=== PATIENT | female | born 1965 | race Caucasian/White ===

== ENCOUNTER 2022-07-10 13:40 | Emergency (ER) | payer OTHER, SELFPAY ==
[2022-07-10 13:51] VITALS: BP 101/70; PULSE 76; RESP 18; TEMP 36.8; O2SAT 96; BMI 38.7
--- NOTE | 2022-07-10 14:01 | ED.SKABFB1 ---
HPI - Skin/Abscess/Foreign Bdy General Chief complaint: Skin/Abscess/Foreign Body Stated complaint: SPLINTER IN BOTTOM OF FOOT Time Seen by Provider: 07/10/22 13:55 Source: patient Mode of arrival: walk-in Limitations: no limitations History of Present Illness HPI narrative: 57 year old female presents to the ED with c/o FB in her right foot. States she has a splinter in her right lateral foot. It occurred 3 days ago. Her tetanus status is not up to date. Reports increased pain today. Denies hx of DM. Denies fever, chills, drainage from the area. Rates her pain 6/0 at this time. She is accompanied by family. MD complaint: Reports foreign body Onset (ago): day(s) (3) Tetanus up to date: no Location: Reports R foot Severity: moderate Pain Consistency: Reports constant Relieving factors: Reports none Exacerbating factors: Reports palpation and movement Associated symptoms: Reports denies other symptoms; Denies fever, chills, itching, arthralgias or myalgias Related Data Home Medications Medication Instructions Recorded Confirmed amlodipine 5 mg tablet 5 mg PO QDAY 07/10/22 07/10/22 losartan 100 1 tab PO QDAY 07/10/22 07/10/22 mg-hydrochlorothiazide 12.5 mg tablet omeprazole 40 mg capsule,delayed 40 mg PO BID 07/10/22 07/10/22 release oxybutynin chloride 5 mg tablet 5 mg PO Q12H 07/10/22 07/10/22 rosuvastatin 10 mg tablet 10 mg PO QDAY 07/10/22 07/10/22 venlafaxine 75 mg tablet 75 mg PO Q12H 07/10/22 07/10/22 Previous Rx's Medication Instructions Recorded cephalexin 500 mg capsule 500 mg PO TID 7 days #21 caps 07/10/22 Allergies Allergy/AdvReac Type Severity Reaction Status Date / Time No Known Drug Allergies Allergy Verified 07/10/22 13:51 Review of Systems ROS Constitutional Denies: fever, chills or fatigue Cardiovascular Denies: chest pain Respiratory Denies: shortness of breath Musculoskeletal Denies: extremity swelling Integumentary/Breast Denies: rash, itching, redness or changes in skin color Exam Constitutional: Vital Signs, click to edit/add: Vital Signs - 24 hr 07/10/22 13:51 Temperature 98.2 F Pulse Rate [Monito r] 76 Respiratory Rate 18 Blood Pressure [Le ft Arm] 101/70 Pulse Oximetry 96 Oxygen Delivery Me thod Room Air Common normals: no apparent distress and oriented x3 General appearance: cooperative; not in distress and not ill appearing Respiratory: Common normals: normal respiratory effort Cardio: Rate: regular rate Peripheral pulses: posterior tibial pulses present and dorsalis pedis pulses present Extremity: Right lower extremity: foot and digits Right foot and digits: inspection (No erythema, drainage, bruising to right foot. ) and palpation (Tenderness, palpable FB to right lateral foot. ) Neuro: Common normals: oriented x3 and moves all extremities Course Vital Signs Vital signs: Vital Signs Temperature 98.2 F 07/10/22 13:51 Pulse Rate 76 07/10/22 13:51 Respiratory Rate 18 07/10/22 13:51 Blood Pressure 101/70 07/10/22 13:51 Pulse Oximetry 96 07/10/22 13:51 Oxygen Delivery Method Room Air 07/10/22 13:51 Temperature 98.2 F 07/10/22 13:51 Pulse Rate 76 07/10/22 13:51 Respiratory Rate 18 07/10/22 13:51 Blood Pressure 101/70 07/10/22 13:51 Pulse Oximetry 96 07/10/22 13:51 Oxygen Delivery Method Room Air 07/10/22 13:51 MDM - Skin/Abscess/Foreign Bdy MDM Narrative Medical decision making narrative: The FB was removed and a Band-aid applied. A prescription was provided for Keflex. Follow up with pcp for a recheck, further evaluation and treatment. Return precautions were discussed. Medical Records Attestation: I reviewed the patient's medical records. Discharge Plan Discharge Chief Complaint: Skin/Abscess/Foreign Body Clinical Impression: Foreign body in foot, right, infected Patient Disposition: Home, Self-Care Time of Disposition Decision: 14:57 Condition: Good Mode of Transportation: Private Vehicle Prescriptions / Home Meds: New cephalexin 500 mg capsule 500 mg PO TID 7 Days Qty: 21 0RF No Action amlodipine 5 mg tablet 5 mg PO QDAY losartan-hydrochlorothiazide 100-12.5 mg tablet 1 tab PO QDAY omeprazole 40 mg capsule,delayed release(DR/EC) 40 mg PO BID oxybutynin chloride 5 mg tablet 5 mg PO Q12H rosuvastatin 10 mg tablet 10 mg PO QDAY venlafaxine 75 mg tablet 75 mg PO Q12H Instructions: Soft Tissue Foreign Body (ED) Stand Alone Forms: Portal Instructions Referrals: LUCA MCKEON [Primary Care Provider] - 1 week Procedures ED FB Foreign Body Removal Foreign Body Removal Time out performed: yes Foreign Body Removal Site: foot Description of foreign body: other (splinter) Sedation/Analgesia: other (1% lidocaine without epinephrine; 0.5mL) Technique: manual removal Confirmed by: direct visualization, patient report and palpation Complications: pain Post-procedure exam: awake, alert Neurovascular: normal distal pulse, normal capillary fill, distal light touch sensation intact, distal motor function normal, no signs of compartment syndrome and no change from pre-procedure Additional Comments: The area was cleansed with alcohol and saline. Lidocaine was the utilized to anesthetize the area. A #11 blade was used to make a 3 mm incision in the area to manually remove the FB. An 8 mm splinter was removed. There was also a moderate amount of purulent drainage expressed. Minimal bleeding. The area was irrigated with NS and a Band-aid applied. She tolerated the procedure.
[2022-07-10] MEDS: ADACEL DIPH,PERTUSS(ACELL),TET VAC/PF 0.5 ML ADULT SYRINGE IM (14:15)
[2022-07-10] MEDS: LIDOCAINE HCL 1% PF 20 MG/2 ML VIAL 1 ML INJ (14:15)
--- NOTE | 2022-07-10 15:15 | ED.SKABFB1 ---
Documented by User: Jadyn Binghamon 07/10/22 17:17 HPI - Skin/Abscess/Foreign Bdy General Chief complaint: Skin/Abscess/Foreign Body Stated complaint: SPLINTER IN BOTTOM OF FOOT Time Seen by Provider: 07/10/22 13:55 Source: patient Mode of arrival: walk-in Limitations: no limitations History of Present Illness HPI narrative: 57 year old female presents to the ED with c/o FB in her right foot. States she has a splinter in her right lateral foot. It occurred 3 days ago. Her tetanus status is not up to date. Reports increased pain today. Denies hx of DM. Denies fever, chills, drainage from the area. Rates her pain 6/0 at this time. She is accompanied by family. MD complaint: Reports foreign body Onset (ago): day(s) (3) Tetanus up to date: no Location: Reports R foot Severity: moderate Pain Consistency: Reports constant Relieving factors: Reports none Exacerbating factors: Reports palpation and movement Associated symptoms: Reports denies other symptoms; Denies fever, chills, itching, arthralgias or myalgias Related Data Home Medications Medication Instructions Recorded Confirmed amlodipine 5 mg tablet 5 mg PO QDAY 07/10/22 07/10/22 losartan 100 1 tab PO QDAY 07/10/22 07/10/22 mg-hydrochlorothiazide 12.5 mg tablet omeprazole 40 mg capsule,delayed 40 mg PO BID 07/10/22 07/10/22 release oxybutynin chloride 5 mg tablet 5 mg PO Q12H 07/10/22 07/10/22 rosuvastatin 10 mg tablet 10 mg PO QDAY 07/10/22 07/10/22 venlafaxine 75 mg tablet 75 mg PO Q12H 07/10/22 07/10/22 Previous Rx's Medication Instructions Recorded cephalexin 500 mg capsule 500 mg PO TID 7 days #21 caps 07/10/22 Allergies Allergy/AdvReac Type Severity Reaction Status Date / Time No Known Drug Allergies Allergy Verified 07/10/22 13:51 Review of Systems ROS Constitutional Denies: fever, chills or fatigue Cardiovascular Denies: chest pain or shortness of breath with exertion Respiratory Denies: shortness of breath Musculoskeletal Denies: extremity swelling Integumentary/Breast Denies: rash, itching, redness or changes in skin color Endocrine Denies: fatigue Exam Constitutional: Vital Signs, click to edit/add: Vital Signs - 24 hr 07/10/22 13:51 Temperature 98.2 F Pulse Rate [Monito r] 76 Respiratory Rate 18 Blood Pressure [Le ft Arm] 101/70 Pulse Oximetry 96 Oxygen Delivery Me thod Room Air Common normals: no apparent distress and oriented x3 General appearance: cooperative; not in distress and not ill appearing Respiratory: Common normals: normal respiratory effort Cardio: Common normals: regular rate Rate: regular rate Peripheral pulses: posterior tibial pulses present and dorsalis pedis pulses present Extremity: Right lower extremity: foot and digits Right foot and digits: inspection (No erythema, drainage, bruising to right foot. ) and palpation (Tenderness, palpable FB to right lateral foot. ) Neuro: Common normals: oriented x3 and moves all extremities Course Vital Signs Vital signs: Vital Signs Temperature 98.2 F 07/10/22 13:51 Pulse Rate 76 07/10/22 13:51 Respiratory Rate 18 07/10/22 13:51 Blood Pressure 101/70 07/10/22 13:51 Pulse Oximetry 96 07/10/22 13:51 Oxygen Delivery Method Room Air 07/10/22 13:51 Temperature 98.2 F 07/10/22 13:51 Pulse Rate 76 07/10/22 13:51 Respiratory Rate 18 07/10/22 13:51 Blood Pressure 101/70 07/10/22 13:51 Pulse Oximetry 96 07/10/22 13:51 Oxygen Delivery Method Room Air 07/10/22 13:51 MDM - Skin/Abscess/Foreign Bdy MDM Narrative Medical decision making narrative: The FB was removed as documented below and a Band-aid applied. A prescription was provided for Keflex. Follow up with pcp for a recheck, further evaluation and treatment. Return precautions were discussed. Medical Records Attestation: I reviewed the patient's medical records. Discharge Plan Discharge Chief Complaint: Skin/Abscess/Foreign Body Clinical Impression: Foreign body in foot, right, infected Patient Disposition: Home, Self-Care Time of Disposition Decision: 14:57 Condition: Good Mode of Transportation: Private Vehicle Prescriptions / Home Meds: New cephalexin 500 mg capsule 500 mg PO TID 7 Days Qty: 21 0RF No Action amlodipine 5 mg tablet 5 mg PO QDAY losartan-hydrochlorothiazide 100-12.5 mg tablet 1 tab PO QDAY omeprazole 40 mg capsule,delayed release(DR/EC) 40 mg PO BID oxybutynin chloride 5 mg tablet 5 mg PO Q12H rosuvastatin 10 mg tablet 10 mg PO QDAY venlafaxine 75 mg tablet 75 mg PO Q12H Instructions: Soft Tissue Foreign Body (ED) Stand Alone Forms: Portal Instructions Referrals: LUCA MCKEON [Primary Care Provider] - 1 week Discharge Date/Time: 07/10/22 15:09 Procedures ED FB Foreign Body Removal Foreign Body Removal Time out performed: yes Foreign Body Removal Site: foot (right) Description of foreign body: other (splinter) Sedation/Analgesia: other (1% lidocaine without epinephrine; 0.5 mLs utilized) Technique: manual removal, incision made to facilitate removal (3 mm incision with #11 blade) and irrigation (Thoroughly irrigated with NS) Confirmed by: direct visualization and palpation Complications: pain Post-procedure exam: awake, alert Neurovascular: normal distal pulse, normal capillary fill, distal light touch sensation intact, distal motor function normal, no signs of compartment syndrome and no change from pre-procedure Additional Comments: The area was cleansed initially with alcohol and NS. Lidocaine was then injected into the area for local anesthesia. #11 blade was used to make a 3 mm incision. The splinter was then manually expressed; thin, linear, approx 8mm. A moderate amount of purulent drainage was also expressed. Minimal bleeding. She tolerated the procedure. The area was irrigated with NS. A Band-aid was applied. Documented by User: Feliciano Mcdaniel MD 07/10/22 19:41 HPI - Skin/Abscess/Foreign Bdy General Chief complaint: Skin/Abscess/Foreign Body Stated complaint: SPLINTER IN BOTTOM OF FOOT Time Seen by Provider: 07/10/22 13:55 Related Data Home Medications Medication Instructions Recorded Confirmed amlodipine 5 mg tablet 5 mg PO QDAY 07/10/22 07/10/22 losartan 100 1 tab PO QDAY 07/10/22 07/10/22 mg-hydrochlorothiazide 12.5 mg tablet omeprazole 40 mg capsule,delayed 40 mg PO BID 07/10/22 07/10/22 release oxybutynin chloride 5 mg tablet 5 mg PO Q12H 07/10/22 07/10/22 rosuvastatin 10 mg tablet 10 mg PO QDAY 07/10/22 07/10/22 venlafaxine 75 mg tablet 75 mg PO Q12H 07/10/22 07/10/22 Previous Rx's Medication Instructions Recorded cephalexin 500 mg capsule 500 mg PO TID 7 days #21 caps 07/10/22 Allergies Allergy/AdvReac Type Severity Reaction Status Date / Time No Known Drug Allergies Allergy Verified 07/10/22 13:51 Exam Constitutional: Vital Signs, click to edit/add: Vital Signs - 24 hr 07/10/22 13:51 Temperature 98.2 F Pulse Rate [Monito r] 76 Respiratory Rate 18 Blood Pressure [Le ft Arm] 101/70 Pulse Oximetry 96 Oxygen Delivery Me thod Room Air Course Vital Signs Vital signs: Vital Signs Temperature 98.2 F 07/10/22 13:51 Pulse Rate 76 07/10/22 13:51 Respiratory Rate 18 07/10/22 13:51 Blood Pressure 101/70 07/10/22 13:51 Pulse Oximetry 96 07/10/22 13:51 Oxygen Delivery Method Room Air 07/10/22 13:51 Temperature 98.2 F 07/10/22 13:51 Pulse Rate 76 07/10/22 13:51 Respiratory Rate 18 07/10/22 13:51 Blood Pressure 101/70 07/10/22 13:51 Pulse Oximetry 96 07/10/22 13:51 Oxygen Delivery Method Room Air 07/10/22 13:51 Critical Care Time Critical Care Time Attestation: I, Dr Mcdaniel, have reviewed the above progress note and course of action in the ER; agree with the above. I have not personally seen and evaluated this patient, With the nurse practitioner I have gone over history and physical, and discussed disposition and treatment plan. Discharge Plan Discharge Chief Complaint: Skin/Abscess/Foreign Body Clinical Impression: Foreign body in foot, right, infected Patient Disposition: Home, Self-Care Time of Disposition Decision: 14:57 Condition: Good Mode of Transportation: Private Vehicle Prescriptions / Home Meds: New cephalexin 500 mg capsule 500 mg PO TID 7 Days Qty: 21 0RF No Action amlodipine 5 mg tablet 5 mg PO QDAY losartan-hydrochlorothiazide 100-12.5 mg tablet 1 tab PO QDAY omeprazole 40 mg capsule,delayed release(DR/EC) 40 mg PO BID oxybutynin chloride 5 mg tablet 5 mg PO Q12H rosuvastatin 10 mg tablet 10 mg PO QDAY venlafaxine 75 mg tablet 75 mg PO Q12H Instructions: Soft Tissue Foreign Body (ED) Stand Alone Forms: Portal Instructions Referrals: LUCA MCKEON [Primary Care Provider] - 1 week Discharge Date/Time: 07/10/22 15:09
== END 2022-07-10 15:09 | disposition home or self-care (01) ==
PROVIDERS: Emergency Provider Emergency Medicine; PCP Internal Medicine
DX: S90.851A Superficial foreign body, right foot, initial encounter (principal); L08.9 Local infection of the skin and subcutaneous tissue, unspecified; W45.8XXA Other foreign body or object entering through skin, initial encounter; Z23 Encounter for immunization; Z79.899 Other long term (current) drug therapy
CPT/HCPCS: 10120; 90471; 90715; 99284